=== PATIENT | male | born 1980 | race Hispanic/Latino ===

== ENCOUNTER 2017-05-22 10:32 | Emergency (ER) | payer OTHER ==
[2017-05-22 10:35] VITALS: BMI 34.4
[2017-05-22 10:38] VITALS: TEMP 97.9
--- NOTE | 2017-05-22 10:58 | ED PDOC ---
Arrival/HPI - General Chief Complaint: Back Pain Time Seen by Provider: 05/22/17 10:54 Historian: Patient - History of Present Illness Narrative History of Present Illness (Text): 05/22/17 10:55 36 yo M reports developing sudden onset of pain in the L lower back after he was leaning forward cleaning his dog's litter and he then straightened his back. reports having history of muscle spasms in his back in August, states he took Tylenol last night with no improvement of symptoms prompting ER visit. Otherwise: (-) paresthesias, (-) weakness, (-) acute bowel or bladder dysfunction, (-) trauma, (-) injury, (-) abdominal pain, (-) urinary symptoms, ( -) fever. Has history of prior back problem. 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 Past Medical History - Provider Review Nursing Documentation Reviewed: Yes - Infectious Disease Hx of Infectious Diseases: None - Cardiac Hx Cardiac Disorders: No - Pulmonary Hx Respiratory Disorders: No - Neurological Hx Neurological Disorder: No - HEENT Hx HEENT Disorder: No - Renal Hx Renal Disorder: No - Endocrine/Metabolic Hx Endocrine Disorders: No - Hematological/Oncological Hx Blood Disorders: No - Integumentary Hx Dermatological Disorder: No - Musculoskeletal/Rheumatological Hx Musculoskeletal Disorders: Yes Hx Back Pain: Yes - Gastrointestinal Hx Gastrointestinal Disorders: No - Genitourinary/Gynecological Hx Genitourinary Disorders: No - Psychiatric Hx Psychophysiologic Disorder: No Hx Substance Use: No - Anesthesia Hx Anesthesia: No Family/Social History - Physician Review Nursing Documentation Reviewed: Yes Family/Social History: Unknown Family HX Smoking Status: Never Smoked Hx Alcohol Use: Yes Frequency of alcohol use: Socially Hx Substance Use: No Allergies/Home Meds Allergies/Adverse Reactions: Allergies No Known Allergies Allergy (Verified 05/22/17 10:35) Review of Systems - Review of Systems Constitutional: Normal. absent: Fatigue, Weight Change, Fevers Respiratory: Normal. absent: SOB, Cough, Sputum Cardiovascular: Normal. absent: Chest Pain, Palpitations, Edema Gastrointestinal: Normal. absent: Abdominal Pain, Nausea, Vomiting Genitourinary Male: Normal. absent: Dysuria, Frequency, Hematuria Musculoskeletal: Normal, Back Pain (prior back pain). absent: Arthralgias, Neck Pain Skin: Normal. absent: Rash, Pruritis, Skin Lesions Physical Exam - Physical Exam Narrative Physical Exam (Text): 05/22/17 10:58 GENERAL APPEARANCE: Patient is awake, alert, oriented x 3, in moderate distress. SKIN: Warm, dry; (-) cyanosis. EYES: (-) conjunctival pallor. ENMT: Mucous membranes moist. NECK: (-) tenderness, (-) stiffness, (-) lymphadenopathy. CHEST AND RESPIRATORY: (-) rales, (-) rhonchi, (-) wheezes; breath sounds equal bilaterally. HEART AND CARDIOVASCULAR: (-) irregularity; (-) murmur, (-) gallop. ABDOMEN AND GI: Soft; (-) tenderness; (-) palpable mass. BACK: Diffusely tender paralumbar area L>R, (+) mild spasm, (-) direct bony tenderness, (-) deformity. Straight leg raising (-) bilaterally. EXTREMITIES: (-) deformity. Distal pulses good bilaterally. NEURO AND PSYCH: Mental status as above. Intact sensation bilaterally; normal strength in extension of the knees, plantar and dorsiflexion of the toes. DTRs symmetric. Vital Signs Temp Pulse Resp BP Pulse Ox 05/22/17 12:10 78 18 125/79 97 05/22/17 10:36 97.9 F 83 17 127/89 96 Medical Decision Making ED Course and Treatment: 05/22/17 10:58 36 yo M reports developing sudden onset of pain in the L lower back after he was leaning forward cleaning his dog's litter and he then straightened his back. Plan : - Toradol IM - Tramadol PO - Flexeril PO On reevaluation, patient reports improvement of pain. Patient is observed ambulating in the ER. Advised to follow up with primary care physician in 1-2 days without fail. Advised to take medication as prescribed. Return to the emergency room at any time for any new or worsening symptoms. Patient states he fully agrees with and understands discharge instructions. States that he agrees with the plan and disposition. Verbalized and repeated discharge instructions and plan. I have given the patient opportunity to ask any additional questions. - Medication Orders Current Medication Orders: Discontinued Medications Cyclobenzaprine HCl (Flexeril) 10 mg PO STAT STA Stop: 05/22/17 10:55 Last Admin: 05/22/17 11:16 Dose: 10 mg Ketorolac Tromethamine (Toradol) 60 mg IM STAT STA Stop: 05/22/17 10:55 Last Admin: 05/22/17 11:16 Dose: 60 mg MAR Pain Assessment Document 05/22/17 11:16 GMD (Rec: 05/22/17 11:16 GMD [id number]) Pain Reassessment Is this a pain reassessment? No Sleep Is patient sleeping during reassessment? No Presence of Pain Presence of Pain Yes IM Administration Charges Document 05/22/17 11:16 GMD (Rec: 05/22/17 11:16 GMD [id number]) Injection Site MAR Injection Site Right Gluteus Bryan Charges for Administration # of IM Administrations 1 Tramadol HCl (Ultram) 50 mg PO STAT STA Stop: 05/22/17 10:55 Last Admin: 05/22/17 11:16 Dose: 50 mg MAR Pain Assessment Document 05/22/17 11:16 GMD (Rec: 05/22/17 11:16 GMD [id number]) Pain Reassessment Is this a pain reassessment? No Sleep Is patient sleeping during reassessment? 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 Disposition/Present on Arrival - Present on Arrival Any Indicators Present on Arrival: No History of DVT/PE: No History of Uncontrolled Diabetes: No Urinary Catheter: No History of Decub. Ulcer: No History Surgical Site Infection Following: None - Disposition Have Diagnosis and Disposition been Completed?: Yes Diagnosis: Low back pain Disposition: HOME/ ROUTINE Disposition Time: 12:30 Patient Plan: Discharge Condition: IMPROVED Discharge Instructions (ExitCare): Acute Low Back Pain (ED) Print Language: ITALIAN Additional Instructions: Thank you for letting us take care of you today. You were treated for low back pain. The emergency medical care you received today was directed at your acute symptoms. If you were prescribed any medication, please fill it and take as directed. It may take several days for your symptoms to resolve. Return to the Emergency Department if your symptoms worsen, do not improve, or if you have any other problems. Please contact your doctor in 2 days for re-evaluation and follow up. Bring any paperwork you were given at discharge with you along with any medications you are taking to your follow up visit. Our treatment cannot replace ongoing medical care by a primary care provider (PCP) outside of the emergency department. Thank you for allowing the [facility] team to be part of your care today. Prescriptions: Cyclobenzaprine [Cyclobenzaprine HCl] 10 mg PO TID PRN #15 tab PRN Reason: Muscle Spasm Meloxicam [Mobic] 15 mg PO DAILY #20 tab traMADol [Ultram] 50 mg PO TID PRN #15 tab PRN Reason: Pain, Moderate (4-7) Referrals: PCP,NO [Primary Care Provider] - Follow up with primary Forms: [employer] (Greek), WORK NOTE
[2017-05-22 12:11] VITALS: BP 125/79; PULSE 78; RESP 18; O2SAT 97
== END 2017-05-22 13:04 | disposition home or self-care (01) ==
LOC: ED 10:32
DX: M54.5 Low back pain (principal)
CPT/HCPCS: 96372; 99285; J1885

== ENCOUNTER 2018-07-24 10:08 | Emergency (ER) | payer OTHER ==
[2018-07-24 10:09] VITALS: BMI 34.4
[2018-07-24 10:22] VITALS: RESP 18; TEMP 98.1
[2018-07-24] MEDS ORDERED: Lidocaine 5% Patch TD STA (12:07)
[2018-07-24 12:35] VITALS: BP 121/78; PULSE 74; O2SAT 96
--- NOTE | 2018-07-25 01:13 | ED PDOC ---
Arrival/HPI - General Chief Complaint: Back Pain Time Seen by Provider: 07/24/18 10:25 - History of Present Illness Narrative History of Present Illness (Text): 38 year old male with past medical history of muscle spasms presents department complaining of worsening lumbar and thoracic muscle spasms x 3 days. Patient states he was doing chores around the house on Tuesday and after sitting for long periods over the weekend, developed muscle spasms typical of his usual episodes. Pain is worse with movement. Denies fevers, chills, abdominal pain, chest pain, SOB, diaphoresis, flank pain, bowel/bladder incontinence, saddles anesthesia, numbness, paresthesias, weakness, or any other associated complaints. Past Medical History - Provider Review Nursing Documentation Reviewed: Yes - Infectious Disease Hx of Infectious Diseases: None - Cardiac Hx Cardiac Disorders: No - Pulmonary Hx Respiratory Disorders: No - Neurological Hx Neurological Disorder: No - HEENT Hx HEENT Disorder: No - Renal Hx Renal Disorder: No - Endocrine/Metabolic Hx Endocrine Disorders: No - Hematological/Oncological Hx Blood Disorders: No - Integumentary Hx Dermatological Disorder: No - Musculoskeletal/Rheumatological Hx Musculoskeletal Disorders: Yes Hx Back Pain: Yes - Gastrointestinal Hx Gastrointestinal Disorders: No - Genitourinary/Gynecological Hx Genitourinary Disorders: No - Psychiatric Hx Psychophysiologic Disorder: No Hx Substance Use: No - Anesthesia Hx Anesthesia: No Family/Social History - Physician Review Nursing Documentation Reviewed: Yes Family/Social History: No Known Family HX Smoking Status: Never Smoked Hx Alcohol Use: Yes Frequency of alcohol use: Socially Hx Substance Use: No Allergies/Home Meds Allergies/Adverse Reactions: Allergies No Known Allergies Allergy (Verified 07/24/18 10:22) Review of Systems - Physician Review All systems were reviewed & negative as marked: Yes - Review of Systems Constitutional: Normal. absent: Fatigue, Weight Change, Fevers, Night Sweats, Other Eyes: Normal ENT: Normal. absent: Hearing Changes, Tinnitus, TMJ Pain, Voice Changes, Sore Throat, Rhinorrhea, Epistaxis, Sinus Congestion, Other Respiratory: Normal. absent: SOB, Cough, Sputum, Wheezing, Other Cardiovascular: Normal. absent: Chest Pain, Palpitations, Edema, Calf Pain, HARRIS, Orthopnea, SY, Syncope, Other Gastrointestinal: Normal. absent: Abdominal Pain, Stool Changes, Constipation, Diarrhea, Nausea, Vomiting, Appetite Changes, Hematochezia, Hematemesis, Anorexia, Food Intolerance, Other Genitourinary Male: Normal. absent: Dysuria, Frequency, Hematuria, Urinary Output Changes, Other Musculoskeletal: Back Pain Skin: Normal. absent: Rash, Pruritis, Skin Lesions, Laceration, Abscess, Ulcer, Cellulitis, Other Neurological: Normal. absent: Headache, Dizziness, Focal Weakness, Gait Changes, Speech Changes, SC, Facial Droop, DE, Disequilibrium, SE, Seizure, Other Endocrine: Normal. absent: Diaphoresis, Polyuria, Polydipsia, Other Hemo/Lymphatic: Normal Psychiatric: Normal Physical Exam Vital Signs Reviewed: Yes Vital Signs Temp Pulse Resp BP Pulse Ox 07/24/18 12:33 74 18 121/78 96 07/24/18 12:03 78 18 139/92 H 98 07/24/18 10:20 98.1 F 89 18 154/102 H 96 Temperature: Afebrile Blood Pressure: Normal Pulse: Regular Respiratory Rate: Normal Appearance: Positive for: Non-Toxic, Uncomfortable Pain Distress: Moderate Mental Status: Positive for: Alert and Oriented X 3 - Systems Exam Head: Present: Atraumatic, Normocephalic Pupils: Present: PERRL Extroacular Muscles: Present: EOMI Conjunctiva: Present: Normal Mouth: Present: Moist Mucous Membranes Neck: Present: Normal Range of Motion Respiratory/Chest: Present: Clear to Auscultation, Good Air Exchange. No: Respiratory Distress, Accessory Muscle Use Cardiovascular: Present: Regular Rate and Rhythm, Normal S1, S2. No: Murmurs Abdomen: Present: Normal Bowel Sounds. No: Tenderness, Distention, Peritoneal Signs, Other (pulsatile mass) Back: Present: Normal Inspection, Paraspinal Tenderness (bilateral lumbar), Pain with Leg Raise (left), Other (thoracic and lumbar palpable muscle spasm). No: CVA Tenderness, Midline Tenderness Upper Extremity: Present: Normal Inspection, Normal ROM, NORMAL PULSES, Ne urovascularly Intact, Capillary Refill < 2s. No: Cyanosis, Edema Lower Extremity: Present: Normal Inspection, NORMAL PULSES, Normal ROM, Neurovascularly Intact, Capillary Refill < 2 s. No: Edema Neurological: Present: GCS=15, CN II-XII Intact, Speech Normal, Motor Func Grossly Intact, Normal Sensory Function, Gait Normal Skin: Present: Warm, Dry, Normal Color. No: Rashes Lymphatic: No: Cervical Adenopathy Psychiatric: Present: Alert, Oriented x 3, Normal Insight, Normal Concentration, Normal Affect, Normal Mood Medical Decision Making ED Course and Treatment: Initial Plan: * Valium * Toradol * Lidoderm Patch * Recheck BP * Reassess and Disposition On initial exam, patient unable to sit or lie flat secondary to muscle spasm. 11:35 Patient reports significant decrease in pain after medication, asking to be discharged home. Now able to sit and stand without difficulty. BP and HR decreased as pain and muscle spasm decreased. BP normal on discharge home. Diagnostic testing results and plan of care discussed with patient, and strict instructions given regarding prescriptions, importance of follow up, and signs to return to Emergency Department, to include urinary symptoms, fever, chills, abdominal pain, worsening back pain, numbness, paresthesias, or any other new/worsening symptoms. Patient verbalizes understanding of discussion. Patient A&Ox3, ambulating with steady gait, stable for discharge home. - Medication Orders Current Medication Orders: Discontinued Medications Diazepam (Valium) 5 mg PO STAT STA; Protocol Stop: 07/24/18 10:53 Last Admin: 07/24/18 11:09 Dose: 5 mg Ketorolac Tromethamine (Toradol) 60 mg IM STAT STA Stop: 07/24/18 10:53 Last Admin: 07/24/18 11:09 Dose: 60 mg MAR Pain Assessment Document 07/24/18 11:09 GMD (Rec: 07/24/18 11:09 GMD [id number]) Pain Reassessment Is this a pain reassessment? No IM Administration Charges Document 07/24/18 11:09 GMD (Rec: 07/24/18 11:09 [email or web address] Injection Site MAR Injection Site Left Deltoid Charges for Administration # of IM Administrations 1 Lidocaine (Lidoderm) 1 ea TD STAT STA Stop: 07/24/18 12:08 Last Admin: 07/24/18 12:13 Dose: 1 ea MAR Transdermal Patch Site Document 07/24/18 12:13 GMD (Rec: 07/24/18 12:13 [id number] Transdermal Patch Site Transdermal Patch Site Right Lower Back Disposition/Present on Arrival - Present on Arrival Any Indicators Present on Arrival: No History of DVT/PE: No History of Uncontrolled Diabetes: No Urinary Catheter: No History of Decub. Ulcer: No History Surgical Site Infection Following: None - Disposition Have Diagnosis and Disposition been Completed?: Yes Diagnosis: Muscle spasm Disposition: HOME/ ROUTINE Disposition Time: 12:15 Condition: IMPROVED Discharge Instructions (ExitCare): Muscle Spasms (DC) Additional Instructions: Take flexeril every 12 hours as needed for spasm; do not drive or operate heavy machinery Take naproxen daily as needed for pain Followup with orthopedics within 2 days Followup with PMD within 2 days Return to ER for any new/worsening symptoms Prescriptions: Cyclobenzaprine [Cyclobenzaprine HCl] 10 mg PO Q12H PRN #14 tab PRN Reason: Muscle Spasm Naproxen [Naprosyn] 500 mg PO DAILY PRN #14 tablet PRN Reason: Pain, Moderate (4-7) Forms: [employer] (Danish), WORK NOTE
== END 2018-07-24 12:38 | disposition home or self-care (01) ==
LOC: ED 10:08
DX: M62.830 Muscle spasm of back (principal)
CPT/HCPCS: 96372; 99284; J1885